=== PATIENT | male | born 1950 | race Two or more races ===

== ENCOUNTER 2023-11-24 15:49 | Emergency (ER) | payer OTHER ==
[~2023-11-24] VITALS: Ht 180.3 cm; Wt 97.5 kg
[2023-11-24] MEDS ORDERED: HYDRALAZINE HC100 MG PO (15:57)
[2023-11-24] MEDS ORDERED: DOXAZOSIN MESYLA4 MG PO (15:58)
[2023-11-24] MEDS ORDERED: NIFEDIPINE20 MG (15:58)
[2023-11-24] MEDS ORDERED: ATACAND32 MG (15:58)
[2023-11-24] MEDS ORDERED: PLAVIX75 MG (15:59)
[2023-11-24] MEDS ORDERED: INSPRA50 MG PO (15:59)
[2023-11-24] MEDS ORDERED: ISOSORBIDE MONO30 MG (16:00)
== END 2023-11-24 16:48 | disposition home or self-care (01) ==
LOC: ER 15:51
DX: F41.9 Anxiety disorder, unspecified (principal); Z88.0 Allergy status to penicillin; Z91.013 Allergy to seafood; I10 Essential (primary) hypertension